=== PATIENT | female | born 1990 | race Caucasian/White ===

== ENCOUNTER 2019-02-20 16:26 | Emergency (ER) | payer OTHER ==
[2019-02-20 16:45] VITALS: BP 132/86; PULSE 103; TEMP 99; BMI 18.8
--- NOTE | 2019-02-20 16:53 | PDOC ---
History of Present Illness - General Chief Complaint: Chest Pain Stated Complaint: CHEST PAIN AND SHORT OF BREATH Time Seen by Provider: 02/20/19 16:35 History Source: Patient Exam Limitations: No Limitations - History of Present Illness Initial Comments: 02/20/19 16:48 28 yo female no sig pmh presents to the ED for sudden onset CP. Pt states her boyfriend was recently diagnosed with Lyme's disease which has made her very anxious and concerned. Pt admits to having an argument with her boyfriend today regarding his medical care and had sudden onset substernal CP described as tightness, non radiating. Pt also admitted to sudden onset nausea and diaphoresis. All s/s are currently resolved. Pt denies exertional CP, family hx of sudden cardiac or ACS, denies recent travel, calf pain, SOB, abdominal pain, changes in bowel or bladder habits or current N/V/F/C. Past History - Past Medical History Allergies/Adverse Reactions: Allergies Allergy/AdvReac Type Severity Reaction Status Date / Time Sulfa (Sulfonamide Allergy Mild Hives Verified 02/20/19 16:28 Antibiotics) Home Medications: Ambulatory Orders Norgestimate-Ethinyl Estradiol [Qly-Oc-Ffcldjpk Tablet] 1 each PO DAILY COPD: No Other medical history: DENIES - Immunization History Immunization Up to Date: No - Suicide/Smoking/Psychosocial Hx Smoking History: Never smoked Information on smoking cessation initiated: No Hx Alcohol Use: Yes (SOCIAL) Drug/Substance Use Hx: No *Physical Exam - Vital Signs Last Vital Signs Temp Pulse Resp BP Pulse Ox 99 F 103 H 18 132/86 99 02/20/19 16:28 02/20/19 16:28 02/20/19 16:28 02/20/19 16:28 02/20/19 16:28 Medical Decision Making - Medical Decision Making 28 yo female no risk factors for cardiac disease, no family hx of sudden cardiac presents to ed with non exertional CP after argument with Boyfriend Vitals WNL 02/20/19 16:[address] elevations or depressions DDX INLT: ACS (unlikely due to clinical picture and normal EKG) GERD, Panic attack/anxiety Pt resting comfortably, states she no longer has CP. NAD, non toxic appearing Pt can be DC home with PCP f/u and strict return precautions for ACS *DC/Admit/Observation/Transfer Diagnosis at time of Disposition: Panic attack - Discharge Dispostion Disposition: HOME Condition at time of disposition: Stable Decision to Admit order: No - Referrals Referrals: Jose R Stein [Primary Care Provider] - - Patient Instructions Printed Discharge Instructions: DI for Panic Disorder Additional Instructions: Please see your primary doctor within the next 48 hours. Take the medication sent to your pharmacy as prescribed. Return to the ER for new or concerning symptoms including but not limited to: continued chest pain especially if it is related to exertion or high fevers. Read the discharge instructions regarding Panic Attacks and try to reduce stress as much as possible. Thank you - Post Discharge Activity
--- NOTE | 2019-02-20 17:01 | PDOC ---
Attending Attestation - Resident Resident Name: DeborahJulian - ED Attending Attestation I have performed the following: I have examined & evaluated the patient, The case was reviewed & discussed with the resident, I agree w/resident's findings & plan, Exceptions are as noted - HPI HPI: 02/20/19 16:57 28y F no pmhx presents with complaint of chest pain. Pt was in her usual state of health and was having an argument with her boyriend when she had a brief episode of chest tightness associaetd with lightheadedness that lasted approximately 1 hr - symptoms improved as she was in the ED waiting to be seen. Pt denies ever having similar episodes in the past. No associated sob, cough, hemoptysis, leg swelling, headache, abd pain, back pain, numbness/tingling/ weakness. Pt denies ever having any sob/cp/tightness with exertion and is a fairly active young adult. pt currently asymptomatic. Family hx: Dad- HTN, Mom metastatic ca, Grandmother [place] in her 80s Social: denies recreational drugs, - Physicial Exam PE: 02/20/19 17:26 GENERAL: The patient is awake, alert, and fully oriented, Nontoxic - in no acute distress. HEAD: Normocephalic, atraumatic. EYES: extraocular movements intact, sclera anicteric, conjunctiva clear. ENT: Normal voice, Moist mucous membranes. NECK: Normal range of motion, supple LUNGS: Breath sounds equal, clear to auscultation bilaterally. No wheezes, no rhonchi, no rales. HEART: Regular rate and rhythm, normal S1 and S2 without murmur, rub or gallop. ABDOMEN: Soft, nontender, normoactive bowel sounds. No guarding, no rebound. . No CVA tenderness EXTREMITIES: Normal range of motion, no edema. No clubbing or cyanosis. No cords, erythema, or tenderness. NEUROLOGICAL: No facial assymetry, Normal speech, moving all 4 extremities spontaneously and symmetrically PSYCH: Normal mood, normal affect. SKIN: Warm, Dry, normal turgor, - Medical Decision Making 02/20/19 17:26 Suspect anxiety/panic attack. Patient's EKG is unremarkable. Low risk for ACS/PE. As the patient is currently asymptomatic we'll discharge patient with PMD follow -up. Return precautions were discussed Heart Score/ECG Review - ECG Impressions Comment:: 02/20/19 17:25 Twelve-lead EKG was performed and reviewed by me. There is normal sinus rhythm with a normal rate. rate of 92 The axis is normal. intervals are normal no st changes suggestive of acut eischemia
--- NOTE | 2019-02-21 08:25 | EKG ---
Test Reason : Blood Pressure : / mmHG Vent. Rate : 092 BPM Atrial Rate : 092 BPM P-R Int : 154 ms QRS Dur : 078 ms QT Int : 352 ms P-R-T Axes : 044 070 046 degrees QTc Int : 435 ms NORMAL SINUS RHYTHM POSSIBLE LEFT ATRIAL ENLARGEMENT BORDERLINE ECG NO PREVIOUS ECGS AVAILABLE Confirmed by JUAN BOYLE, ROBIN ([id number]) on 02/21/2019 8:24:58 AM Referred By: MD CHANEL Confirmed By:ROBIN MARTINEZ MD
== END 2019-02-20 17:29 | disposition home or self-care (01) ==
LOC: FER 16:26
DX: F41.0 Panic disorder [episodic paroxysmal anxiety] (principal)
CPT/HCPCS: 93005; 99283-25